=== PATIENT | male | born 1985 | race African-American/Black ===

== ENCOUNTER 2021-12-19 18:07 | Inpatient (IN) | payer OTHER ==
[~2021-12-19] VITALS: Ht 170.2 cm; Wt 176.1 kg
[2021-12-19] VITALS (15 sets, daily range): BP systolic 129–161; BP diastolic 59–85
[2021-12-19 19:50] LABS: URINE BILIRUBIN - DIPSTICK LARGE (NEGATIVE); URINE BLOOD DIPSTICK LARGE (NEGATIVE); URINE GLUCOSE - DIPSTICK 100 mg/dL (NEGATIVE); URINE KETONE 15 mg/dL (NEGATIVE); URINE LEUK ESTERASE NEGATIVE (NEGATIVE); URINE PH 5.5 (4.5-8.0); URINE PROTEIN - DIPSTICK >=300 mg/dL (NEG-TRACE); URINE SPECIFIC GRAVITY >=1.030; URINE UROBILINOGEN - DIPSTICK >=8.0 E.U./dL (0.2)
[2021-12-19 19:50] LABS: HEMATOCRIT 37.2 % (39.0-50.0); HEMOGLOBIN 11.9 g/dl (14.0-18.0); IMMATURE GRANULOCYTES 0.1 % (0.0-5.0); MEAN CELL VOLUME 93.7 fL CALC (80.0-100.0); NEUT# 8.07 thou/uL (1.82-7.42); RED BLOOD COUNT 3.97 mill/uL (4.70-6.10); RED CELL DISTRI WIDTH 13.4 % (11.5-15.5)
[2021-12-19 19:51] LABS: URINE NITRITE - DIPSTICK POSITIVE (Negative)
[2021-12-19 19:52] LABS: URINE COLOR BROWN
[2021-12-19 19:56] LABS: URINE BACTERIA FEW hpf; URINE CASTS FEW lpf (NONE-RARE); URINE SQUAMOUS EPITHELIAL CELL MODERATE EPI/hpf (0-FEW)
[2021-12-19 20:06] LABS: ALBUMIN 4.1 g/dL (3.2-5.0); ALKALINE PHOSPHATASE 97 u/l (38-126); ANION GAP 19 (6-22 (CALC)); BILIRUBIN, TOTAL 3.4 mg/dL (0.0-1.4); BUN 9 mg/dL (9-20); BUN/CREATININE RATIO 10 (12-20 (CALC)); CARBON DIOXIDE 23 mmol/l (22-30); CHLORIDE 102 mmol/l (95-108); CREATININE 0.9 mg/dL (0.7-1.3); GFR FOR AFR.AMER. > 60 ML/MIN (>=60 (CALC)); GFR OTHER RACES > 60 ML/MIN (>=60 (CALC)); POTASSIUM 3.8 mmol/l (3.5-5.1); SGOT/AST 27 u/l (17-59); SODIUM 140 mmol/l (137-146); TOTAL PROTEIN 8.8 g/dL (6.3-8.2)
[2021-12-20] VITALS (48 sets, daily range): BP systolic 87–158; BP diastolic 40–99
[2021-12-20] MEDS ORDERED: WARFARIN SODIUM1 MG PO (04:11)
[2021-12-20] MEDS ORDERED: LASIX40 MG PO (04:12)
[2021-12-20] MEDS ORDERED: ACETAMINOP160 MG/5 M PO (04:13)
[2021-12-20 21:15] LABS: HEMATOCRIT 37.2 % (39.0-50.0)
[2021-12-21 00:48] VITALS: BP 145/76
[2021-12-21 04:13] VITALS: BP 140/74
[2021-12-21 05:13] LABS: HEMATOCRIT 38.3 % (39.0-50.0); HEMOGLOBIN 12.4 g/dl (14.0-18.0); IMMATURE GRANULOCYTES 0.3 % (0.0-5.0); MEAN CELL VOLUME 93.4 fL CALC (80.0-100.0); MEAN CORPUSCULAR HGB 30.2 pG CALC (26.0-32.0); MEAN CORPUSCULAR HGB CONC 32.4 g/dL CAL (32.0-36.0); NEUT# 8.51 thou/uL (1.82-7.42); RED BLOOD COUNT 4.1 mill/uL (4.70-6.10); RED CELL DISTRI WIDTH 14.1 % (11.5-15.5)
[2021-12-21 05:32] LABS: ALKALINE PHOSPHATASE 59 u/l (38-126); BUN 10 mg/dL (9-20); BUN/CREATININE RATIO 12 (12-20 (CALC)); CARBON DIOXIDE 22 mmol/l (22-30); CHLORIDE 105 mmol/l (95-108); CREATININE 0.8 mg/dL (0.7-1.3); GFR FOR AFR.AMER. > 60 ML/MIN (>=60 (CALC)); GFR OTHER RACES > 60 ML/MIN (>=60 (CALC)); SGOT/AST 36 u/l (17-59); SODIUM 140 mmol/l (137-146); TOTAL PROTEIN 7.2 g/dL (6.3-8.2)
[2021-12-21 05:39] LABS: ACT PARTIAL THROMBO TIME 37.3 SECONDS (20.0-32.5); INTERNATIONAL NORMALIZED RATIO 2.9 RATIO (0.7-1.3); PROTHROMBIN TIME 27.3 SECONDS (9.0-12.5)
[2021-12-21 06:03] LABS: ALBUMIN 3.1 g/dL (3.2-5.0); ANION GAP 18 (6-22 (CALC)); BILIRUBIN, TOTAL 6.2 mg/dL (0.0-1.4); POTASSIUM 4.9 mmol/l (3.5-5.1)
[2021-12-21 06:37] VITALS: BP 141/76
[2021-12-21 10:41] VITALS: BP 123/61
[2021-12-21 16:01] VITALS: BP 125/61
[2021-12-21 19:03] VITALS: BP 143/66
[2021-12-22 00:21] VITALS: BP 130/66
[2021-12-22 04:23] VITALS: BP 118/60
[2021-12-22 07:19] VITALS: BP 120/60
[2021-12-22 09:36] LABS: ALBUMIN 2.7 g/dL (3.2-5.0); BILIRUBIN, TOTAL 5.4 mg/dL (0.0-1.4); TOTAL PROTEIN 6.5 g/dL (6.3-8.2)
[2021-12-22 09:37] LABS: IMMATURE GRANULOCYTES 0.4 % (0.0-5.0); MEAN CELL VOLUME 95.1 fL CALC (80.0-100.0); MEAN CORPUSCULAR HGB 29.8 pG CALC (26.0-32.0); MEAN CORPUSCULAR HGB CONC 31.3 g/dL CAL (32.0-36.0); NEUT# 9.83 thou/uL (1.82-7.42); RED BLOOD COUNT 3.09 mill/uL (4.70-6.10); RED CELL DISTRI WIDTH 14.4 % (11.5-15.5)
[2021-12-22 09:40] LABS: INTERNATIONAL NORMALIZED RATIO 2.8 RATIO (0.7-1.3); PROTHROMBIN TIME 26.9 SECONDS (9.0-12.5)
[2021-12-22 09:56] LABS: HEMATOCRIT 29.4 % (39.0-50.0); HEMOGLOBIN 9.2 g/dl (14.0-18.0)
[2021-12-22 10:43] VITALS: BP 133/68
[2021-12-22 10:44] LABS: DIRECT BILIRUBIN 2.8 mg/dl (0.0-0.3)
[2021-12-22 14:45] VITALS: BP 131/76
[2021-12-22 20:21] VITALS: BP 143/75
[2021-12-23 01:48] VITALS: BP 152/86
[2021-12-23 04:02] VITALS: BP 146/82
[2021-12-23 07:36] VITALS: BP 134/73
[2021-12-23 12:00] VITALS: BP 135/76
[2021-12-23 19:14] VITALS: BP 140/69
[2021-12-24] VITALS (7 sets, daily range): BP systolic 123–133; BP diastolic 62–76
[2021-12-24 05:19] LABS: HEMATOCRIT 29.6 % (39.0-50.0); HEMOGLOBIN 9.6 g/dl (14.0-18.0); IMMATURE GRANULOCYTES 1.3 % (0.0-5.0); MEAN CELL VOLUME 92.5 fL CALC (80.0-100.0); MEAN CORPUSCULAR HGB CONC 32.4 g/dL CAL (32.0-36.0); NEUT# 5.95 thou/uL (1.82-7.42); RED BLOOD COUNT 3.2 mill/uL (4.70-6.10); RED CELL DISTRI WIDTH 14.6 % (11.5-15.5)
[2021-12-24 05:39] LABS: INTERNATIONAL NORMALIZED RATIO 2.8 RATIO (0.7-1.3); PROTHROMBIN TIME 26.4 SECONDS (9.0-12.5)
[2021-12-24 05:41] LABS: ALBUMIN 2.8 g/dL (3.2-5.0); ALKALINE PHOSPHATASE 76 u/l (38-126); BILIRUBIN, TOTAL 3.5 mg/dL (0.0-1.4); BUN 12 mg/dL (9-20); BUN/CREATININE RATIO 16 (12-20 (CALC)); CARBON DIOXIDE 23 mmol/l (22-30); CHLORIDE 103 mmol/l (95-108); CREATININE 0.7 mg/dL (0.7-1.3); GFR FOR AFR.AMER. > 60 ML/MIN (>=60 (CALC)); GFR OTHER RACES > 60 ML/MIN (>=60 (CALC)); SGOT/AST 23 u/l (17-59); SODIUM 138 mmol/l (137-146); TOTAL PROTEIN 6.5 g/dL (6.3-8.2)
[2021-12-24 05:45] LABS: ANION GAP 16 (6-22 (CALC))
[2021-12-24 05:46] LABS: POTASSIUM 3.5 mmol/l (3.5-5.1)
[2021-12-25 00:01] VITALS: BP 133/68
[2021-12-25 03:50] VITALS: BP 138/81
[2021-12-25 04:00] VITALS: BP 138/81
[2021-12-25 06:14] VITALS: BP 141/82
[2021-12-25 07:38] VITALS: BP 141/82
[2021-12-25] MEDS ORDERED: TRAMADOL HCL50 MG PO (08:03)
[2021-12-25] MEDS ORDERED: LEVOFLOXACIN500MG PO (08:03)
== END 2021-12-25 13:42 | disposition designated cancer center or children's hospital (05) | DRG 339 ==
LOC: ED 18:07 → ED-I 23:17 → ED 23:29 → MS2 23:30 → ICU 12-20 02:26 → MS2 12-20 11:30 → ICU 12-20 11:30 → MS2 12-20 13:47 → ICU 12-20 19:30 → MS2 12-20 19:30 → ICU 12-25 13:42
PROVIDERS: Family Medicine; ADMIT Surgery; ATTEND Internal Medicine
PROC: 0DTJ0ZZ Resection of Appendix, Open Approach (ICD-10-PCS; principal; 2021-12-20)
PROC: 0WQF0ZZ Repair Abdominal Wall, Open Approach (ICD-10-PCS; 2021-12-20)
PROC: 0W9G4ZZ Drainage of Peritoneal Cavity, Percutaneous Endoscopic Approach (ICD-10-PCS; 2021-12-20)
DX: K35.33 Acute appendicitis with perforation, localized peritonitis, and gangrene, with abscess (principal); N39.0 Urinary tract infection, site not specified; E80.4 Gilbert syndrome; K42.9 Umbilical hernia without obstruction or gangrene; I10 Essential (primary) hypertension; B95.4 Other streptococcus as the cause of diseases classified elsewhere; B96.89 Other specified bacterial agents as the cause of diseases classified elsewhere; Z86.718 Personal history of other venous thrombosis and embolism; Z86.711 Personal history of pulmonary embolism; Z20.822 Contact with and (suspected) exposure to COVID-19; Z95.828 Presence of other vascular implants and grafts
CPT/HCPCS: J0131; J1650; Q9967